=== PATIENT | female | born 1975 | race Two or more races ===

== ENCOUNTER 2022-01-02 10:45 | Outpatient (CLI) | payer OTHER | END 2022-01-02 11:01 | disposition home or self-care (01) | LOC: LAB 10:45 | PROVIDERS: ATTEND Obstetrics & Gynecology | DX: D53.9 Nutritional anemia, unspecified (principal); E78.5 Hyperlipidemia, unspecified; E55.9 Vitamin D deficiency, unspecified; E78.2 Mixed hyperlipidemia; D64.9 Anemia, unspecified; E03.9 Hypothyroidism, unspecified; E78.00 Pure hypercholesterolemia, unspecified; M25.551 Pain in right hip; Z01.419 Encounter for gynecological examination (general) (routine) without abnormal findings; Z11.3 Encounter for screening for infections with a predominantly sexual mode of transmission ==

== ENCOUNTER → 2022-03-06 08:36 | Outpatient (CLI) | payer OTHER | END | disposition home or self-care (01) | LOC: LAB 08:36 | DX: L72.3 Sebaceous cyst (principal) ==

== ENCOUNTER 2022-04-02 11:06 | Outpatient (CLI) | payer OTHER | END 2022-04-02 11:10 | disposition home or self-care (01) | LOC: LAB 11:06 | DX: E78.5 Hyperlipidemia, unspecified (principal); E03.5 Myxedema coma ==

== ENCOUNTER → 2022-08-05 09:01 | Outpatient (CLI) | payer OTHER | END | disposition home or self-care (01) | LOC: LAB 09:01 | PROVIDERS: ATTEND Internal Medicine | DX: E78.5 Hyperlipidemia, unspecified (principal); E03.5 Myxedema coma; I10 Essential (primary) hypertension; J45.998 Other asthma; I50.9 Heart failure, unspecified; E03.1 Congenital hypothyroidism without goiter; Z12.11 Encounter for screening for malignant neoplasm of colon ==

== ENCOUNTER 2022-08-13 08:52 | Outpatient (CLI) | payer OTHER | END 2022-08-13 08:54 | disposition home or self-care (01) | LOC: LAB 08:52 | PROVIDERS: ATTEND Specialist | DX: R06.09 Other forms of dyspnea (principal); J45.998 Other asthma; I10 Essential (primary) hypertension ==

== ENCOUNTER 2025-02-26 09:45 | Inpatient (IN) | payer OTHER ==
[~2025-02-26] VITALS: Ht 193 cm; Wt 74.8 kg
[2025-02-26 12:15] LABS: BASO % 0.4 % (0.1-1.2); EOS # 0.31 (0.04-0.54); EOS % 3.2 % (0.7-7.0); LYMPH # 1.57 (1.18-3.74); LYMPH % 16.4 % (19.3-53.1); MEAN PLATELET VOLUME 9.70 fl (9.4-12.4); MONO # 0.46 (0.24-0.82); MONO % 4.8 % (4.7-12.5); NEUT # 7.18 (1.56-6.13); NEUT % 74.9 % (34.0-71.1); RED CELL DISTRIBUTION WIDTH 13.2 % (11.6-14.4)
[2025-02-26 12:19] LABS: URINE APPEARANCE Clear; URINE BILIRRUBIN Negative (NEGATIVE); URINE BLOOD Small; URINE COLOR Yellow; URINE GLUCOSE Negative (NEGATIVE); URINE KETONE Negative (NEGATIVE); URINE LEUKOCYTE Negative; URINE NITRATE Negative; URINE PROTEIN Negative (NEGATIVE); URINE UROBILINOGEN 0.2 E.U./dl
[2025-02-26 12:23] LABS: URINE BACTERIA 68.4 uL (0.0-1933); URINE EPITHELIAL CELLS 3.9 uL (0.0-38.8); URINE RBC 30.2 uL (0.0-20.8); URINE WBC 4.2 uL (0.0-23.2)
[2025-02-26 12:24] LABS: URINE CAST 0.00 uL (0.0-1.40)
[2025-02-26 12:37] LABS: INR 0.95
[2025-02-26 12:43] LABS: ALT/SGPT 20.0 U/L (12-78); AST/SGOT 11.0 U/L (15-37); BILIRUBIN TOTAL 0.27 mg/dL (0.3-1.2); BUN CREA RATIO 21.0 (7.0-25.0); CREATININE SERUM 0.63 mg/dL (0.55-1.02); GFR 100.02; GLOBULINA 3.2 G/DL (2.4-3.5); GLUCOSE FASTING 97.0 mg/dL (65-100); OSMOLALITY SERUM 283.0 MOSM/KG (275-295)
[2025-02-26 12:54] VITALS: BP 123/82
[2025-02-26] MEDS ORDERED: CELEXA20 MG (12:55)
[2025-02-26] MEDS ORDERED: CRESTOR40 MG (12:55)
[2025-02-26] MEDS ORDERED: CRESTOR 20MG (12:56)
[2025-02-26] MEDS ORDERED: ADULT LOW DOSE81 M1 (12:56)
[2025-03-12] MEDS ORDERED: HEPARIN SODIUM,PORCINE 5,000 UNITS/ML VIAL ONE (10:51)
[2025-03-12] MEDS ORDERED: ROSUVASTATIN CA20 MG (11:20)
[2025-03-12] MEDS ORDERED: POVIDONE-IODINE 118 ML BOTT TOP ONE (11:45)
[2025-03-12] MEDS ORDERED: METRONIDAZOLE/SODIUM CHLORIDE 500 MG/100 ML PIGGYBACK IV ONE (11:45)
[2025-03-12] MEDS ORDERED: CEFAZOLIN SODIUM 1,000 MG VIAL IV ONE (11:45)
[2025-03-12] MEDS ORDERED: CHLORHEXIDINE GLUCONATE 120 ML BOTTLE TOP ONE (11:45)
[2025-03-12] MEDS ORDERED: VISTASEAL DUAL APPICATOR 1 EACH APPL TOP ONE (13:53)
[2025-03-12] MEDS ORDERED: THROMBIN,HU/FIBRINOGEN/CALCIUM 10 ML SYRINGE TOP ONE (13:53)
[2025-03-12] MEDS ORDERED: ISOPROPYL ALCOHOL 30 ML OUNCE TOP ONE (14:32)
[2025-03-12] MEDS ORDERED: SUGAMMADEX SODIUM 200 MG/2 ML VIAL IV ONE (14:34)
[2025-03-12] MEDS ORDERED: GABAPENTIN 300 MG CAPSULE PO SCH (17:00)
[2025-03-12] MEDS ORDERED: RINGERS SOLUTION,LACTATED 1,000 ML IV SCH (17:00)
[2025-03-12] MEDS ORDERED: ROSUVASTATIN CALCIUM 20 MG TABLET PO SCH (17:00)
[2025-03-12] MEDS ORDERED: KETOROLAC TROMETHAMINE 30 MG VIAL ONE (17:35)
[2025-03-12] MEDS ORDERED: ACETAMINOPHEN 500 MG GEL..CAP PO SCH (18:00)
[2025-03-12] MEDS ORDERED: KETOROLAC TROMETHAMINE 30 MG VIAL IV SCH (18:00)
[2025-03-12] MEDS ORDERED: MORPHINE SULFATE 4 MG/ML VIAL IV PRN (21:30)
[2025-03-13 00:47] VITALS: BP 111/70
[2025-03-13 06:57] LABS: BASO % 0.3 % (0.1-1.2); EOS # 0.14 (0.04-0.54); EOS % 1.2 % (0.7-7.0); LYMPH # 1.50 (1.18-3.74); LYMPH % 13.0 % (19.3-53.1); MEAN PLATELET VOLUME 10.00 fl (9.4-12.4); MONO # 0.60 (0.24-0.82); MONO % 5.2 % (4.7-12.5); NEUT # 9.18 (1.56-6.13); NEUT % 79.9 % (34.0-71.1); RED CELL DISTRIBUTION WIDTH 13.0 % (11.6-14.4)
[2025-03-13 09:08] VITALS: BP 122/73
== END 2025-03-13 11:37 | disposition home or self-care (01) | DRG 743 ==
LOC: SURH 03-12 07:00 → OB/GYN 03-12 10:32 → O/R 03-12 10:32 → OB/GYN 03-12 15:33
PROVIDERS: ADMIT Student in an Organized Health Care Education/Training Program; ATTEND Student in an Organized Health Care Education/Training Program
PROC: 0UT74ZZ Resection of Bilateral Fallopian Tubes, Percutaneous Endoscopic Approach (ICD-10-PCS; 2025-03-12)
PROC: 0UT04ZZ Resection of Right Ovary, Percutaneous Endoscopic Approach (ICD-10-PCS; 2025-03-12)
PROC: 0TN64ZZ Release Right Ureter, Percutaneous Endoscopic Approach (ICD-10-PCS; 2025-03-12)
PROC: 0TJB8ZZ Inspection of Bladder, Via Natural or Artificial Opening Endoscopic (ICD-10-PCS; 2025-03-12)
PROC: 0UT94ZZ Resection of Uterus, Percutaneous Endoscopic Approach (ICD-10-PCS; principal; 2025-03-12 07:00)
DX: D25.1 Intramural leiomyoma of uterus (principal); J45.909 Unspecified asthma, uncomplicated; Z90.710 Acquired absence of both cervix and uterus; Z90.721 Acquired absence of ovaries, unilateral; N80.03 Adenomyosis of the uterus; N80.9 Endometriosis, unspecified; N72 Inflammatory disease of cervix uteri; N80.3C2 Endometriosis of the left uterosacral ligament, unspecified depth; N80.101 Endometriosis of right ovary, unspecified depth